=== PATIENT | female | born 1960 | race African-American/Black ===

== ENCOUNTER 2018-11-25 14:26 | Inpatient (IN) | payer BC ==
[2018-11-25] MEDS ORDERED: HEPARIN SODIUM,PORCINE 5,000 UNIT/ML 1 ML VIAL IV PRN (14:38)
[2018-11-25] MEDS ORDERED: HEPARIN SODIUM,PORCINE 10,000 UNIT/ML 1 ML VIAL IV ONE (14:38)
--- NOTE | 2018-11-25 14:41 | ED ---
General Adult HPI - General Chief complaint: Chest Pain Stated complaint: Chest pain Time Seen by Provider: 11/25/18 14:38 Source: patient Mode of arrival: wheelchair Limitations: no limitations - History of Present Illness Initial comments: Dictation was produced using [employer] dictation software. please excuse any grammatical, word or spelling errors. Chief Complaint: 58 yo female past medical history of hypertension, dys lipidemia, also arthritis presents with instruction from primary care physician come to the emergency department. History of Present Illness: This 58-year-old female with past medical history of dyslipidemia hypertension osteoarthritis. She presents today with chief complaint of chest pain, shortness of breath and palpitations 2 weeks. Patient states her symptoms began 2 weeks ago where she had pain in her left anterior neck. She states the pain radiates down to her left anterior chest. Denies any exacerbating or mitigating factors. Patient is full short of breath. She has a history of breast cancer. Denies any history of pulmonary embolus patient does complain of intermittent pain in the left lower extremity. Patient was evaluated at her PCPs office where she was found to have shingles elevated heart rate. The ROS documented in this emergency department record has been reviewed and confirmed by me. Those systems with pertinent positive or negative responses have been documented in the HPI. All other systems are other negative and/or noncontributory. PHYSICAL EXAM: General Impression: Alert and oriented x3, not in acute distress HEENT: Normocephalic atraumatic, extra-ocular movements intact, pupils equal and reactive to light bilaterally, mucous membranes moist. Cardiovascular: Tachycardic Chest: Lungs clear to auscultation bilaterally, no rhonchi, no wheeze, no rales Abdomen: Bowel sounds present, abdomen soft, non-tender, non-distended, no organomegaly Musculoskeletal: Pulses present and equal in all extremities, no peripheral edema, slight asymmetrical swelling of the left lower extremity greater than the right Motor: no focal deficits noted Neurological: CN II-XII grossly intact, no focal motor or sensory deficits noted Skin: Intact with no visualized rashes Psych: Normal affect and mood ED course: 58-year-old female presents with abnormal vital signs, chest pain and shortness of breath. Vital signs upon arrival shows heart rate 144, blood pre ssure 189/129, worse vital signs within acceptable limits. Patient's well- appearing at bedside. Primary care bedside ultrasound performed. There does not appear to be any pericardial effusion.Discussed patient case in detail with Dr. Lyle of vascular surgery on-call. He is aware that CT angios the chest was not time for arterial dissection, furthermore CT angios the neck was a suboptimal study with exam limitations. He has low clinical suspicion of aortic dissection with radiation to the carotid arteries. He recommends performing stat ultrasound carotids of the bilateral carotid artery. Patient reevaluated she states that she still has his pain however mild. Her heart rate is improved to 120s with intravenous fluids. She given another bolus. Return evaluation tape mild leukocytosis of 12.1 likely secondary to stress. Coag panel unremarkable. Blood gas shows a bicarb of 30 without any pH abnormalities. Metabolic panel shows potassium 3.3. Likely acidosis of 2.6, magnesium of 1.4. She is given parenteral electrolytes. Cardiac enzymes negative. Chest x-ray shows no ab normalities. Chest CT was not time for aortic abnormalities however there is no findings of acute pulmonary embolism. CT angios the neck was obtained resulting in a suboptimal study. There is significant flow limiting stenosis not clearly identified of the left carotid artery. Radiology recommends additional evaluation with ultrasound or magnetic resonance angiogram. Stat ultrasound carotids were obtained per recommendation by vascular surgery. Discussed patient case in detail with radiologist Dr. Sammie Byrne. He reviewed films and reports that there is no aortic dissection, PE or carotid dissection. He does report that there does appear to be some decreased flow in the carotid seen on CT angios the neck he does recommend ultrasound of the carotid to confirm CTA findings. At this point patient does not have any serious cardiopulmonary or vascular emergency. Patient given aspirin for chest pain. Patient appears comfortable at this time. Pending ultrasound carotid results. Patient be admitted for tachycardia, electrolyte abnormality and dehydration. Cardiology on consultation. EKG interpretation: Ventricular rate 139, sinus tachycardia, NV interval 150, QRS 80, QTc 559. No NV prolongation, positive prolonged QTC - Related Data Home Medications Medication Instructions Recorded Confirmed Amitriptyline HCl [Elavil] 25 mg PO HS 11/25/18 11/25/18 Hyoscyamine Sulfate [Levsin] 0.125 mg PO QID 11/25/18 11/25/18 Losartan/Hydrochlorothiazide 1 tab PO DAILY 11/25/18 11/25/18 [Losartan-Hctz 100-12.5 mg Tab] Multivitamins, Thera [Multivitamin 1 tab PO DAILY 11/25/18 11/25/18 (formulary)] Allergies Allergy/AdvReac Type Severity Reaction Status Date / Time No Known Allergies Allergy Verified 11/25/18 14:56 Review of Systems ROS Statement: Those systems with pertinent positive or pertinent negative responses have been documented in the HPI. ROS Other: All systems not noted in ROS Statement are negative. Past Medical History Past Medical History: Cancer, Hyperlipidemia, Hypertension, Osteoarthritis (OA) Additional Past Medical History / Comment(s): hx breast cancer, IBS, HERNIA, unexplained wt loss 21 pounds, diarrhea History of Any Multi-Drug Resistant Organisms: None Reported Past Surgical History: Breast Surgery, Cholecystectomy, Hysterectomy, Orthopedic Surgery, Tonsillectomy Additional Past Surgical History / Comment(s): left breast lumpectomy, zo knee arthroscopy Past Anesthesia/Blood Transfusion Reactions: Postoperative Nausea & Vomiting (PONV) Past Psychological History: No Psychological Hx Reported Smoking Status: Never smoker Past Alcohol Use History: None Reported Past Drug Use History: None Reported - Past Family History Sister(s) Family Medical History: Cancer Mother Family Medical History: AFIB, Cancer General Exam Limitations: no limitations Course Vital Signs 11/25/18 11/25/18 11/25/18 14:28 15:29 17:07 Temperature 98.4 F Pulse Rate 144 H 128 H Respiratory 26 H 18 18 Rate Blood Pressure 189/129 164/111 O2 Sat by Pulse 99 Oximetry Medical Decision Making - Lab Data Result diagrams: 11/25/18 15:00 11/25/18 15:00 Lab Results 11/25/18 11/25/18 11/25/18 Range/Units 15:00 15:00 15:00 WBC 12.1 H (3.8-10.6) k/uL RBC 5.13 (3.80-5.40) m/uL Hgb 14.1 (11.4-16.0) gm/dL Hct 41.8 (34.0-46.0) % MCV 81.3 (80.0-100.0) fL MCH 27.5 (25.0-35.0) pg MCHC 33.8 (31.0-37.0) g/dL RDW 14.9 (11.5-15.5) % Plt Count 418 (150-450) k/uL Neutrophils % 62 % Lymphocytes % 28 % Monocytes % 4 % Eosinophils % 3 % Basophils % 1 % Neutrophils # 7.5 (1.3-7.7) k/uL Lymphocytes # 3.3 (1.0-4.8) k/uL Monocytes # 0.5 (0-1.0) k/uL Eosinophils # 0.4 (0-0.7) k/uL Basophils # 0.1 (0-0.2) k/uL PT (9.0-12.0) sec INR (<1.2) VBG pH (7.31-7.41) VBG pCO2 (37-51) mmHg VBG HCO3 (24-28) mmol/L Sodium 143 (137-145) mmol/L Potassium 3.3 L (3.5-5.1) mmol/L Chloride 103 (98-107) mmol/L Carbon Dioxide 29 (22-30) mmol/L Anion Gap 11 mmol/L BUN 15 (7-17) mg/dL Creatinine 0.79 (0.52-1.04) mg/dL Est GFR (CKD-EPI)AfAm >90 (>60 ml/min/1.73 sqM) Est GFR (CKD-EPI)NonAf 84 (>60 ml/min/1.73 sqM) Glucose 149 H (74-99) mg/dL Plasma Lactic Acid Luis 2.6 H* (0.7-2.0) mmol/L Calcium 10.3 H (8.4-10.2) mg/dL Magnesium 1.4 L (1.6-2.3) mg/dL Total Bilirubin 0.5 (0.2-1.3) mg/dL AST 33 (14-36) U/L ALT 27 (9-52) U/L Alkaline Phosphatase 157 H (38-126) U/L Troponin I (0.000-0.034) ng/mL NT-Pro-B Natriuret Pep pg/mL Total Protein 7.8 (6.3-8.2) g/dL Albumin 4.7 (3.5-5.0) g/dL 11/25/18 11/25/18 11/25/18 Range/Units 15:00 15:00 15:00 WBC (3.8-10.6) k/uL RBC (3.80-5.40) m/uL Hgb (11.4-16.0) gm/dL Hct (34.0-46.0) % MCV (80.0-100.0) fL MCH (25.0-35.0) pg MCHC (31.0-37.0) g/dL RDW (11.5-15.5) % Plt Count (150-450) k/uL Neutrophils % % Lymphocytes % % Monocytes % % Eosinophils % % Basophils % % Neutrophils # (1.3-7.7) k/uL Lymphocytes # (1.0-4.8) k/uL Monocytes # (0-1.0) k/uL Eosinophils # (0-0.7) k/uL Basophils # (0-0.2) k/uL PT 9.9 (9.0-12.0) sec INR 0.9 (<1.2) VBG pH (7.31-7.41) VBG pCO2 (37-51) mmHg VBG HCO3 (24-28) mmol/L Sodium (137-145) mmol/L Potassium (3.5-5.1) mmol/L Chloride (98-107) mmol/L Carbon Dioxide (22-30) mmol/L Anion Gap mmol/L BUN (7-17) mg/dL Creatinine (0.52-1.04) mg/dL Est GFR (CKD-EPI)AfAm (>60 ml/min/1.73 sqM) Est GFR (CKD-EPI)NonAf (>60 ml/min/1.73 sqM) Glucose (74-99) mg/dL Plasma Lactic Acid Luis (0.7-2.0) mmol/L Calcium (8.4-10.2) mg/dL Magnesium (1.6-2.3) mg/dL Total Bilirubin (0.2-1.3) mg/dL AST (14-36) U/L ALT (9-52) U/L Alkaline Phosphatase (38-126) U/L Troponin I <0.012 (0.000-0.034) ng/mL NT-Pro-B Natriuret Pep 35 pg/mL Total Protein (6.3-8.2) g/dL Albumin (3.5-5.0) g/dL 05/23/19 Range/Units 16:32 WBC (3.8-10.6) k/uL RBC (3.80-5.40) m/uL Hgb (11.4-16.0) gm/dL Hct (34.0-46.0) % MCV (80.0-100.0) fL MCH (25.0-35.0) pg MCHC (31.0-37.0) g/dL RDW (11.5-15.5) % Plt Count (150-450) k/uL Neutrophils % % Lymphocytes % % Monocytes % % Eosinophils % % Basophils % % Neutrophils # (1.3-7.7) k/uL Lymphocytes # (1.0-4.8) k/uL Monocytes # (0-1.0) k/uL Eosinophils # (0-0.7) k/uL Basophils # (0-0.2) k/uL PT (9.0-12.0) sec INR (<1.2) VBG pH 7.41 (7.31-7.41) VBG pCO2 48 (37-51) mmHg VBG HCO3 30 H (24-28) mmol/L Sodium (137-145) mmol/L Potassium (3.5-5.1) mmol/L Chloride (98-107) mmol/L Carbon Dioxide (22-30) mmol/L Anion Gap mmol/L BUN (7-17) mg/dL Creatinine (0.52-1.04) mg/dL Est GFR (CKD-EPI)AfAm (>60 ml/min/1.73 sqM) Est GFR (CKD-EPI)NonAf (>60 ml/min/1.73 sqM) Glucose (74-99) mg/dL Plasma Lactic Acid Luis (0.7-2.0) mmol/L Calcium (8.4-10.2) mg/dL Magnesium (1.6-2.3) mg/dL Total Bilirubin (0.2-1.3) mg/dL AST (14-36) U/L ALT (9-52) U/L Alkaline Phosphatase (38-126) U/L Troponin I (0.000-0.034) ng/mL NT-Pro-B Natriuret Pep pg/mL Total Protein (6.3-8.2) g/dL Albumin (3.5-5.0) g/dL Disposition Clinical Impression: Chest pain, Hypomagnesemia Disposition: ADMITTED IP TO THIS HOSP Condition: Fair Referrals: Dallin York MD [Primary Care Provider] - 1-2 days Decision Time: 17:16
[2018-11-25] MEDS ORDERED: HEPARIN SOD,PORK IN 0.45% NACL 25,000 UNIT in 0.45% NACL 1 250ML.BAG IV SCH (14:45)
[2018-11-25] MEDS ORDERED: SODIUM CHLORIDE 0.9% 1,000 ML IV STA ×2 (14:53→17:18)
[2018-11-25 15:24] LABS: ALT 27 U/L (9-52); AST 33 U/L (14-36); Albumin 4.7 g/dL (3.5-5.0); Alkaline Phosphatase 157 U/L (38-126); Anion Gap 11 mmol/L; Blood Urea Nitrogen 15 mg/dL (7-17); Calcium 10.3 mg/dL (8.4-10.2); Carbon Dioxide 29 mmol/L (22-30); Chloride 103 mmol/L (98-107); Glucose 149 mg/dL (74-99); Magnesium 1.4 mg/dL (1.6-2.3); Potassium 3.3 mmol/L (3.5-5.1); Sodium 143 mmol/L (137-145); Total Bilirubin 0.5 mg/dL (0.2-1.3); Total Protein 7.8 g/dL (6.3-8.2)
[2018-11-25] MEDS ORDERED: POTASSIUM CHLORIDE 20 MEQ in WATER FOR INJECTION 1 100ML.BAG IVPB STA (15:32)
[2018-11-25 15:37] LABS: Basophils # (A) 0.1 k/uL (0-0.2); Basophils % (A) 1 %; Eosinophils # (A) 0.4 k/uL (0-0.7); Eosinophils % (A) 3 %; HCT 41.8 % (34.0-46.0); HGB 14.1 gm/dL (11.4-16.0); Lymphocytes # (A) 3.3 k/uL (1.0-4.8); Lymphocytes % (A) 28 %; MCH 27.5 pg (25.0-35.0); MCHC 33.8 g/dL (31.0-37.0); MCV 81.3 fL (80.0-100.0); Mean Platelet Volume 6.9; Monocytes # (A) 0.5 k/uL (0-1.0); Monocytes % (A) 4 %; Neutrophils # (A) 7.5 k/uL (1.3-7.7); Neutrophils % (A) 62 %; Platelet Count 418 k/uL (150-450); RBC 5.13 m/uL (3.80-5.40); RDW 14.9 % (11.5-15.5); WBC 12.1 k/uL (3.8-10.6)
--- NOTE | 2018-11-25 15:42 | XR ---
EXAMINATION TYPE: XR chest 1V portable DATE OF EXAM: 11/25/2018 COMPARISON: NONE HISTORY: Chest pain TECHNIQUE: Single frontal view of the chest is obtained. FINDINGS: There is no focal air space opacity, pleural effusion, or pneumothorax seen. The cardiac silhouette size is within normal limits. Hyperdense linear fragments overlie the left lower lung. Th e osseous structures are intact. Moderate multilevel degenerative changes of the thoracic spine. IMPRESSION: Linear radiopaque densities project over the lower lung. Correlate with surgical history of the left chest or breast. Lateral view could better delineate anatomic location.
--- NOTE | 2018-11-25 15:58 | CT ---
CT CHEST FOR PULMONARY EMBOLISM. EXAMINATION TYPE: CT angio chest DATE OF EXAM: 11/25/2018 INDICATION: Left sided neck pain radiating into chest. Increased heart rate. CT DLP: 704.4 mGycm, Automated exposure control for dose reduction was used. CONTRAST: Patient injected with 50 mL of Isovue 370. COMPARISON: None TECHNIQUE: CT of the chest is performed on a spiral scan at 2 mm thick sections. Study is performed with intravenous contrast timed for evaluation for pulmonary embolism. This will limit additional po rtions of the evaluation. 3-D MIP images reconstructed by the technologist are reviewed on the compu ter in the coronal and sagittal planes. FINDINGS: No persistent filling defects are evident to suggest an acute pulmonary embolism. No mediastinal or hilar adenopathy enlarged by CT criteria is evident. The ascending aorta diameter at the level of the main pulmonary artery is 3.6 cm. The main pulmonary artery diameter at the bifur cation is 2.6 cm. Lung windows are clear. Limited CT section through the upper abdomen are unremarkable. IMPRESSIONS: 1. No acute pulmonary embolism.
[2018-11-25 15:59] LABS: INR 0.9 (<1.2); Prothrombin Time 9.9 sec (9.0-12.0)
--- NOTE | 2018-11-25 16:27 | CT ---
EXAMINATION TYPE: CT angio neck DATE OF EXAM: 11/25/2018 HISTORY: Left sided neck pain radiating into chest. Increased heart rate. COMPARISON: None CT DLP: 792.4 mGycm. Automated Exposure Control for Dose Reduction was Utilized. TECHNIQUE: CTA scan of the neck is performed with IV Contrast, patient injected with 50 mL of Isovue 370, axial images are obtained, coronal and sagittal reformatted images are reviewed. Attempts to ac quire Three-D reconstruction images were unsuccessful. Exam quality limited reconstructions and this exam is limited to the axial plane and 2-D reconstructed images obtained. FINDINGS: Carotid/Vascular Structures: There is a three-vessel arch. Common carotid arteries bifurcate into int ernal and external carotid arteries. Contrast appears greater in the veins and within the adjacent ar teries. Carotid arteries appear to be patent to the level of the skull base. Vertebral arteries are c odominant. [place]: Vertebral basilar system is visualized is normal. The proximal posterior cerebral a rteries are unremarkable. A1 and M1 segments visualized appear normal. The anterior communicating art juan antonio is likely patent. Overall, [place] is limited due to incomplete opacification of the art erial system. Other: Lung apices within the [id number] are clear. Dental amalgam scatter artifacts at the level of the mandible. Thyroid is slightly heterogenous. Scattered small lymph nodes are within the neck. IMPRESSION: 1. Examination is very limited. 2. Significant flow-limiting stenosis not clearly identified. There is a suspicion of narrowing on th e right best visualized on the 2-D coronal plane.. Consider additional evaluation with ultrasound or MRA.
[2018-11-25 16:47] LABS: VBG PH 7.41 (7.31-7.41)
[2018-11-25] MEDS ORDERED: SODIUM CHLORIDE 0.9% 500 ML IV STA (16:57)
[2018-11-25] MEDS: MAGNESIUM SULFATE-D5W PMX 1 GM in DEXTROSE/WATER 1 100ML.BAG IVPB SCH ×2 (17:15→19:29)
[2018-11-25] MEDS ORDERED: ASPIRIN 81 MG PO STA ×2 (17:15→17:16)
[2018-11-25] MEDS ORDERED: NITROGLYCERIN SL TABS 0.4 MG TAB SUBLINGUAL PRN (17:16)
--- NOTE | 2018-11-25 18:17 | US ---
EXAMINATION TYPE: US carotid duplex BILAT DATE OF EXAM: 11/25/2018 COMPARISON: NONE CLINICAL HISTORY: Pain. Pain in left neck going to chest. EXAM MEASUREMENTS: RIGHT: Peak Systolic Velocity (PSV) cm/sec ----- Right CCA: 53.7 ----- Right ICA: 97.3 ----- Right ECA: 49.3 ICA/CCA ratio: 1.8 RIGHT: End Diastole cm/sec ----- Right CCA: 21.7 ----- Right ICA: 44.9 ----- Right ECA: 20.2 LEFT: Peak Systolic Velocity (PSV) cm/sec ----- Left CCA: 82.6 ----- Left ICA: 70.7 ----- Left ECA: 81.4 ICA/CCA ratio: 0.9 LEFT: End Diastole cm/sec ----- Left CCA: 31.3 ----- Left ICA: 27.4 ----- Left ECA: 12.8 VERTEBRALS (direction of flow): Right Vertebral: Antegrade Left Vertebral: Antegrade Rhythm: Arrhythmia IMPRESSION: 1) No significant stenosis. 2) Bilateral vessels are deeply portioned.
[2018-11-25] MEDS ORDERED: LABETALOL SYRINGE 5 MG/ML IVP STA (18:45)
[2018-11-25 20:06] VITALS: BMI 47.8
[2018-11-25] MEDS: ACETAMINOPHEN TAB 325 MG TAB PO PRN (23:30)
[2018-11-26 03:56] LABS: Anion Gap 7 mmol/L; Blood Urea Nitrogen 11 mg/dL (7-17); Calcium 9.2 mg/dL (8.4-10.2); Carbon Dioxide 28 mmol/L (22-30); Chloride 103 mmol/L (98-107); Cholesterol 144 mg/dL (<200); Glucose 120 mg/dL (74-99); HDL Cholesterol 53 mg/dL (40-60); LDL Cholesterol,Calculated 67 mg/dL (0-99); Magnesium 1.8 mg/dL (1.6-2.3); Sodium 138 mmol/L (137-145); Triglycerides 118 mg/dL (<150)
[2018-11-26 08:09] LABS: Basophils # (A) 0.1 k/uL (0-0.2); Basophils % (A) 1 %; Eosinophils # (A) 0.3 k/uL (0-0.7); Eosinophils % (A) 3 %; HCT 36.7 % (34.0-46.0); HGB 12.8 gm/dL (11.4-16.0); Lymphocytes # (A) 3.7 k/uL (1.0-4.8); Lymphocytes % (A) 33 %; MCH 28.6 pg (25.0-35.0); MCV 81.6 fL (80.0-100.0); Monocytes # (A) 0.5 k/uL (0-1.0); Monocytes % (A) 4 %; Neutrophils # (A) 6.4 k/uL (1.3-7.7); Neutrophils % (A) 57 %; Platelet Count 406 k/uL (150-450); RDW 14.3 % (11.5-15.5); WBC 11.1 k/uL (3.8-10.6)
[2018-11-26] MEDS ORDERED: ASPIRIN 325 MG TAB PO SCH (09:00)
[2018-11-26] MEDS ORDERED: LOSARTAN 50 MG TAB PO SCH (09:15)
[2018-11-26] MEDS ORDERED: HYDROCHLOROTHIAZIDE 12.5 MG CAP PO SCH (09:15)
[2018-11-26] MEDS ORDERED: METOPROLOL TARTRATE 25 MG TAB PO SCH (09:15)
--- NOTE | 2018-11-26 09:15 | P.CRDCN ---
History of Present Illness Consult date: 11/26/18 Requesting physician: Natan E Ian Reason for Consult (text): Chest pain and tachycardia Consult reason: chest pain Chief complaint: Chest pain and jaw discomfort History of present illness: This is a pleasant 58-year-old female with history of hypertension, hyperlipidemia, obesity, nondiabetic, nonsmoker, who follows with Dr. York as her primary care doctor. According to the patient, she developed some discomfort in her left jaw area that radiated down her neck. Ultimately she noticed that it radiated down into her chest and if she would move a certain way she would notice a chest pain. It was a sharp pain, that would last only a few seconds, and was very positional. She went to see her primary care doctor, it was noted in the office at her heart rate was elevated, she was admitted to the hospital for further evaluation and treatment. Chest x-ray on arrival here showed linear radiopaque densities which project over the lower lung. CTA of the chest was performed which did not reveal any acute pulmonary embolism. CTA of the neck was performed, it showed suspicion of a narrowing on the right, MRA recommended. Bilateral carotid Doppler study was performed which did not reveal any significant. EKG on admission showed a sinus tachycardia with nonspecific ST-T wave changes, this morning's EKG shows a normal sinus rhythm with no acute changes. Blood pressure on arrival here 189/129, heart rate 140, 99% on room air. Blood pressure this morning 138/70 with a heart rate in the 80s, 96% on room air. White blood cell count 11.1, hemoglobin 12.8, platelet count 46. Sodium 138, potassium 3.0, it was 3.3 on admission, BUN 11 and creatinine 0.6. Plasma lactic acid level on admission was 2.2, magnesium was 1.4, troponins negative 3. Anastacio all is 144, LDL 67, HDL 53 and triglycerides 118. At the time of my examination this morning, patient is free of any chest pain, no discomfort in the jaw, no palpitations. Past Medical History Past Medical History: Cancer, Hyperlipidemia, Hypertension, Osteoarthritis (OA) Additional Past Medical History / Comment(s): hx breast cancer left side masectomy, IBS, HERNIA, unexplained wt loss 21 pounds, diarrhea History of Any Multi-Drug Resistant Organisms: None Reported Past Surgical History: Breast Surgery, Cholecystectomy, Hysterectomy, Orthopedic Surgery, Tonsillectomy Additional Past Surgical History / Comment(s): left breast lumpectomy 2009, zo knee arthroscopy, Past Anesthesia/Blood Transfusion Reactions: Postoperative Nausea & Vomiting (PONV) Past Psychological History: No Psychological Hx Reported Smoking Status: Never smoker Past Alcohol Use History: None Reported Past Drug Use History: None Reported - Past Family History Father Family Medical History: No Reported History Sister(s) Family Medical History: Cancer Additional Family Medical History / Comment(s): breast cancer Mother Family Medical History: AFIB, Cancer Additional Family Medical History / Comment(s): breast cancer Medications and Allergies Home Medications Medication Instructions Recorded Confirmed Type Amitriptyline HCl [Elavil] 25 mg PO HS 11/25/18 11/25/18 History Hyoscyamine Sulfate [Levsin] 0.125 mg PO QID 11/25/18 11/25/18 History Multivitamins, Thera [Multivitamin 1 tab PO DAILY 11/25/18 11/25/18 History (formulary)] Amoxic-Pot Clav 875-125Mg 1 tab PO Q12HR #14 tablet 11/26/18 Rx [Augmentin 875-125] Losartan [Cozaar] 100 mg PO DAILY #30 tab 11/26/18 Rx Allergies Allergy/AdvReac Type Severity Reaction Status Date / Time No Known Allergies Allergy Verified 11/25/18 14:56 Physical Exam Vitals: Vital Signs Temp Pulse Pulse Resp BP BP Pulse Ox 11/26/18 03:14 79 18 11/26/18 03:12 98.2 F 79 18 137/77 96 11/25/18 23:38 78 18 11/25/18 23:37 98.0 F 78 18 169/87 97 11/25/18 20:00 80 18 11/25/18 19:54 97.9 F 80 18 177/98 94 L 11/25/18 19:35 84 150/100 11/25/18 19:21 118 H 132/103 11/25/18 18:40 135 H 172/113 11/25/18 17:07 128 H 18 164/111 11/25/18 15:29 18 11/25/18 14:28 98.4 F 144 H 26 H 189/129 99 Intake and Output 11/25/18 11/26/18 11/26/18 22:59 06:59 14:59 Intake Total 600 360 Balance 600 360 Intake: Oral 600 360 Other: Voiding Method Toilet Toilet # Voids 1 Weight 122.6 kg PHYSICAL EXAMINATION: GENERAL: 58-year-old female in no acute distress at the time of my examination HEENT: Head is atraumatic, normocephalic. Pupils equal, round. Sclera anicteric. Conjunctiva are clear. Mucous membranes of the mouth are moist. Neck is supple. There is some mild swelling noted to the left jaw area. Positive swollen lymph nodes. There is no elevated jugular venous pressure. No carotid bruit is heard. HEART EXAMINATION: Heart S1 and S2 regular, tachycardic CHEST EXAMINATION: Lungs are clear to auscultation and precussion. No chest wall tenderness is noted on palpation or with deep breathing. ABDOMEN: Soft, obese, nontender. Bowel sounds are heard. No organomegaly noted. EXTREMITIES: 2+ peripheral pulses with no evidence of peripheral edema and no calf tenderness noted. NEUROLOGIC patient is awake, alert and oriented 3 . . Results 11/26/18 03:13 11/26/18 03:13 Cardiac Enzymes 11/25/18 11/25/18 11/25/18 Range/Units 15:00 15:00 19:32 AST 33 (14-36) U/L Troponin I <0.012 <0.012 (0.000-0.034) ng/mL 11/26/18 Range/Units 03:13 AST (14-36) U/L Troponin I <0.012 (0.000-0.034) ng/mL Coagulation 11/25/18 Range/Units 15:00 PT 9.9 (9.0-12.0) sec Lipids 11/26/18 Range/Units 03:13 Triglycerides 118 (<150) mg/dL Cholesterol 144 (<200) mg/dL HDL Cholesterol 53 (40-60) mg/dL CBC 11/25/18 11/26/18 Range/Units 15:00 03:13 WBC 12.1 H 11.1 H (3.8-10.6) k/uL RBC 5.13 4.50 (3.80-5.40) m/uL Hgb 14.1 12.8 (11.4-16.0) gm/dL Hct 41.8 36.7 (34.0-46.0) % Plt Count 418 406 (150-450) k/uL Comprehensive Metabolic Panel 11/25/18 11/26/18 Range/Units 15:00 03:13 Sodium 143 138 (137-145) mmol/L Potassium 3.3 L 3.0 L (3.5-5.1) mmol/L Chloride 103 103 (98-107) mmol/L Carbon Dioxide 29 28 (22-30) mmol/L BUN 15 11 (7-17) mg/dL Creatinine 0.79 0.61 (0.52-1.04) mg/dL Glucose 149 H 120 H (74-99) mg/dL Calcium 10.3 H 9.2 (8.4-10.2) mg/dL AST 33 (14-36) U/L ALT 27 (9-52) U/L Alkaline Phosphatase 157 H (38-126) U/L Total Protein 7.8 (6.3-8.2) g/dL Albumin 4.7 (3.5-5.0) g/dL Current Medications Generic Name Dose Route Start Last Admin Trade Name Freq PRN Reason Stop Dose Admin Acetaminophen 650 mg 11/25/18 23:22 11/25/18 23:30 Tylenol Tab PO 650 mg Q6HR PRN Administration Fever and/ or Pain Aspirin 325 mg 11/26/18 09:00 11/26/18 08:39 Aspirin PO 325 mg DAILY ADRIANA Administration Nitroglycerin 0.4 mg 11/25/18 17:16 Nitrostat SUBLINGUAL Q5M PRN Chest Pain Intake and Output 11/25/18 11/26/18 11/26/18 22:59 06:59 14:59 Intake Total 600 360 Balance 600 360 Intake: Oral 600 360 Other: Voiding Method Toilet Toilet # Voids 1 Weight 122.6 kg 11/26/18 03:13 11/26/18 03:13 EKG Interpretations (text) Initial EKG shows a sinus tachycardia with nonspecific ST-T wave changes, m orning EKG shows normal sinus rhythm with no acute changes Assessment and Plan Plan: Assessment and plan #1 symptoms of left jaw and neck discomfort with radiation to the chest, atypical for acute coronary syndrome. Troponins negative 3. Initial EKG shows a sinus tachycardia, subsequent EKG shows normal sinus rhythm. CT of the chest negative for pulmonary embolism. #2 hypokalemia #3 hypomagnesemia #4 hypertensive urgency #5 hyperlipidemia #6 elevated plasma lactic acid level, patient states she was told in her primary care is a doctor's office to have a UTI Plan We will check a free T4 and a TSH level. Obtain echocardiogram with Doppler study. Patient's chest pain is very atypical for acute coronary syndrome. Recommend possible stress testing today. Replace magnesium and potassium. Resume losartan, add a small dose of beta lex. Decrease aspirin to 81 mg daily. Obtain UA. Further recommendations to follow. DNP note has been reviewed, I agree with a documented findings and plan of care. Patient was seen and examined.
[2018-11-26] MEDS: ACETAMINOPHEN TAB 325 MG TAB PO PRN (09:33)
[2018-11-26 09:39] VITALS: RESP 20
[2018-11-26] MEDS ORDERED: POTASSIUM CHLORIDE ER 20 MEQ TAB.ER PO STA (10:37)
[2018-11-26] MEDS ORDERED: MAGNESIUM SULFATE-D5W PMX 1 GM in DEXTROSE/WATER 1 100ML.BAG IVPB ONE (10:37)
--- NOTE | 2018-11-26 10:41 | ECHOF ---
Referral Reason:tachycardia MEASUREMENTS -------- HEIGHT: 160.0 cm WEIGHT: 122.5 kg BP: IVSd: 1.4 cm (0.6 - 1.1) LVIDd: 4.8 cm (3.9 - 5.3) LVPWd: 1.2 cm (0.6 - 1.1) IVSs: 2.3 cm LVIDs: 1.7 cm LVPWs: 2.4 cm LAESV Index (A-L): 23.43 ml/m Ao Diam: 3.0 cm (2.0 - 3.7) AV Cusp: 1.9 cm (1.5 - 2.6) LA Diam: 3.0 cm (2.7 - 3.8) MV EXCURSION: 15.618 mm (> 18.000) MV EF SLOPE: 123 mm/s (70 - 150) EPSS: 0.5 cm MV E Chava: 0.96 m/s MV DecT: 196 ms MV A Chava: 0.85 m/s MV E/A Ratio: 1.14 RAP: 5.00 mmHg RVSP: 9.20 mmHg FINDINGS -------- Sinus rhythm. This was a technically good study. The left ventricular size is normal. There is mild concentric left ventricular hypertrophy. Overa ll left ventricular systolic function is normal with, an EF between 55 - 60 %. The right ventricle is normal in size. Normal LA size by volume 22+/-6 ml/m2. The right atrial size is normal. Interatrial and interventricular septum intact. The aortic valve is trileaflet and appears structurally normal. The mitral valve leaflets are mildly thickened. Mild mitral regurgitation is present. Mild tricuspid regurgitation present. There is no evidence of pulmonary hypertension. The right v entricular systolic pressure, as measured by Doppler, is 9.20mmHg. Pulmonic valve appears structurally normal. The aortic root size is normal. Normal inferior vena cava with normal inspiratory collapse consistent with estimated right atrial pre ssure of 5 mmHg. There is no pericardial effusion. CONCLUSIONS -------- 1. Sinus rhythm. 2. This was a technically good study. 3. The left ventricular size is normal. 4. There is mild concentric left ventricular hypertrophy. 5. Overall left ventricular systolic function is normal with, an EF between 55 - 60 %. 6. The right ventricle is normal in size. 7. Normal LA size by volume 22+/-6 ml/m2. 8. The right atrial size is normal. 9. Interatrial and interventricular septum intact. 10. The aortic valve is trileaflet and appears structurally normal. 11. The mitral valve leaflets are mildly thickened. 12. Mild mitral regurgitation is present. 13. Mild tricuspid regurgitation present. 14. There is no evidence of pulmonary hypertension. 15. The right ventricular systolic pressure, as measured by Doppler, is 9.20mmHg. 16. Pulmonic valve appears structurally normal. 17. The aortic root size is normal. 18. Normal inferior vena cava with normal inspiratory collapse consistent with estimated right atrial pressure of 5 mmHg. 19. There is no pericardial effusion. DATA CENTER OPERATOR: Karmen Macias RDCS
[2018-11-26] MEDS ORDERED: SODIUM CHLORIDE 0.9% 1,000 ML IV SCH (10:45)
--- NOTE | 2018-11-26 10:48 | P.DS ---
Providers Date of admission: 11/25/18 17:16 Attending physician: Natan Sosa MD Consults: 11/25/18 17:16 Consult Physician Routine Consulting Provider: Geo Lyle Consult Reason/Comments: carotid stenosis Do you want consulting provider notified?: Yes Consult Physician Urgent Consulting Provider: Noreen Gregg Consult Reason/Comments: tachycardia Do you want consulting provider notified?: Yes Primary care physician: Dallin York Hospital Course: As mentioned in HPI Patient Condition at Discharge: Fair Plan - Discharge Summary Discharge Rx Participant: No New Discharge Prescriptions: New Amoxic-Pot Clav 875-125Mg [Augmentin 875-125] 1 tab PO Q12HR #14 tablet Losartan [Cozaar] 100 mg PO DAILY #30 tab Continue Amitriptyline HCl [Elavil] 25 mg PO HS Hyoscyamine Sulfate [Levsin] 0.125 mg PO QID Multivitamins, Thera [Multivitamin (formulary)] 1 tab PO DAILY Discontinued Losartan/Hydrochlorothiazide [Losartan-Hctz 100-12.5 mg Tab] 1 tab PO DAILY Discharge Medication List Amitriptyline HCl [Elavil] 25 mg PO HS 11/25/18 [History] Hyoscyamine Sulfate [Levsin] 0.125 mg PO QID 11/25/18 [History] Multivitamins, Thera [Multivitamin (formulary)] 1 tab PO DAILY 11/25/18 [History] Amoxic-Pot Clav 875-125Mg [Augmentin 875-125] 1 tab PO Q12HR #14 tablet 11/26/18 [Rx] Losartan [Cozaar] 100 mg PO DAILY #30 tab 11/26/18 [Rx] Follow up Appointment(s)/Referral(s): Dallin York MD [Primary Care Provider] - 3 Days Vicente Bennett DO [Doctor of Osteopathic Medicine] - 3 Days
--- NOTE | 2018-11-26 10:48 | P.HPIM ---
History of Present Illness Patient is a pleasant 58-year-old female was sent in for chest pain, rule out pulmonary embolism acute coronary syndromes. Patient was sent in from PCPs office Dr. York's office she presented there with the left jaw pain neck pain patient appears to have parotitis. Patient pain was 5/10 in severity now about 3/10 in severity was radiating to the neck area from the left jaw area as well as left shoulder down to the chest area. Patient was evaluated by cardiology and this appears to be noncardiac chest pain patient had a CT angios the chest which did not show any pulmonary embolism. Carotid Doppler no significant the occlusion, CTA of the neck was also within normal limits. Patient does not have any strokelike symptoms at this time. Patient blood pressure was elevated on admission) it's okay. Patient is on losartan and hydrocodone thiazide. Holding off on HIDA, thiazide because of her lactic acidosis. Patient was discharged on losartan. Patient given IV fluids and patient came in his has a lactic acid was 2.59 normalized after IV fluids. Patient is also hypokalemic and hyponatremic secondary to hydrochlorothiazide. I believe patient blood sugar should be okay even without hydrocodone size at this can be resumed as an outpatient if needed. Patient will be started on Augmentin and patient will be referred to ENT specialist I discussed with him on phone. Review of Systems REVIEW OF SYSTEMS: CONSTITUTIONAL: No fever, no malaise, no fatigue. HEENT: No recent visual problems or hearing problems. Denied any sore throat. CARDIOVASCULAR: No orthopnea, PND, no palpitations, no syncope. PULMONARY: No shortness of breath, no cough, no hemoptysis. GASTROINTESTINAL: No diarrhea, no nausea, no vomiting, no abdominal pain. NEUROLOGICAL: No headaches, no weakness, no numbness. HEMATOLOGICAL: Denies any bleeding or petechiae. GENITOURINARY: Denies any burning micturition, frequency, or urgency. MUSCULOSKELETAL/RHEUMATOLOGICAL: Denies any joint pain, swelling, or any muscle pain. ENDOCRINE: Denies any polyuria or polydipsia. The rest of the 14-point review of systems is negative. Past Medical History Past Medical History: Cancer, Hyperlipidemia, Hypertension, Osteoarthritis (OA) Additional Past Medical History / Comment(s): hx breast cancer left side masectomy, IBS, HERNIA, unexplained wt loss 21 pounds, diarrhea History of Any Multi-Drug Resistant Organisms: None Reported Past Surgical History: Breast Surgery, Cholecystectomy, Hysterectomy, Orthopedic Surgery, Tonsillectomy Additional Past Surgical History / Comment(s): left breast lumpectomy 2008, zo knee arthroscopy, Past Anesthesia/Blood Transfusion Reactions: Postoperative Nausea & Vomiting (PONV) Past Psychological History: No Psychological Hx Reported Smoking Status: Never smoker Past Alcohol Use History: None Reported Past Drug Use History: None Reported - Past Family History Father Family Medical History: No Reported History Sister(s) Family Medical History: Cancer Additional Family Medical History / Comment(s): breast cancer Mother Family Medical History: AFIB, Cancer Additional Family Medical History / Comment(s): breast cancer Medications and Allergies Home Medications Medication Instructions Recorded Confirmed Type Amitriptyline HCl [Elavil] 25 mg PO HS 11/25/18 11/25/18 History Hyoscyamine Sulfate [Levsin] 0.125 mg PO QID 11/25/18 11/25/18 History Losartan/Hydrochlorothiazide 1 tab PO DAILY 11/25/18 11/25/18 History [Losartan-Hctz 100-12.5 mg Tab] Multivitamins, Thera [Multivitamin 1 tab PO DAILY 11/25/18 11/25/18 History (formulary)] Allergies Allergy/AdvReac Type Severity Reaction Status Date / Time No Known Allergies Allergy Verified 11/25/18 14:56 Physical Exam Vitals: Vital Signs Temp Pulse Pulse Resp BP BP Pulse Ox 11/26/18 08:00 98.1 F 78 20 121/64 95 11/26/18 03:14 79 18 11/26/18 03:12 98.2 F 79 18 137/77 96 11/25/18 23:38 78 18 11/25/18 23:37 98.0 F 78 18 169/87 97 11/25/18 20:00 80 18 11/25/18 19:54 97.9 F 80 18 177/98 94 L 11/25/18 19:35 84 150/100 11/25/18 19:21 118 H 132/103 11/25/18 18:40 135 H 172/113 11/25/18 17:07 128 H 18 164/111 11/25/18 15:29 18 11/25/18 14:28 98.4 F 144 H 26 H 189/129 99 Intake and Output 11/25/18 11/26/18 11/26/18 22:59 06:59 14:59 Intake Total 600 360 Balance 600 360 Intake: Oral 600 360 Other: Voiding Method Toilet Toilet # Voids 1 Weight 122.6 kg PHYSICAL EXAMINATION: GENERAL: The patient is alert and oriented x3, not in any acute distress. Well developed, well nourished. HEENT: Pupils are round and equally reacting to light. EOMI. No scleral icterus. No conjunctival pallor. Normocephalic, atraumatic. No pharyngeal erythema. No thyromegaly. Redness and swelling of the left jaw CARDIOVASCULAR: S1 and S2 present. No murmurs, rubs, or gallops. PULMONARY: Chest is clear to auscultation, no wheezing or crackles. ABDOMEN: Soft, nontender, nondistended, normoactive bowel sounds. No palpable organomegaly. MUSCULOSKELETAL: No joint swelling or deformity. EXTREMITIES: No cyanosis, clubbing, or pedal edema. NEUROLOGICAL: Gross neurological examination did not reveal any focal deficits. SKIN: No rashes. Results CBC & Chem 7: 11/26/18 03:13 11/26/18 03:13 Labs: Abnormal Lab Results - Last 24 Hours (Table) 11/25/18 11/25/18 11/25/18 Range/Units 15:00 15:00 15:00 WBC 12.1 H (3.8-10.6) k/uL VBG HCO3 (24-28) mmol/L Potassium 3.3 L (3.5-5.1) mmol/L Glucose 149 H (74-99) mg/dL Plasma Lactic Acid Luis 2.6 H* (0.7-2.0) mmol/L Calcium 10.3 H (8.4-10.2) mg/dL Magnesium 1.4 L (1.6-2.3) mg/dL Alkaline Phosphatase 157 H (38-126) U/L 11/25/18 11/25/18 11/26/18 Range/Units 16:32 19:32 03:13 WBC (3.8-10.6) k/uL VBG HCO3 30 H (24-28) mmol/L Potassium 3.0 L (3.5-5.1) mmol/L Glucose 120 H (74-99) mg/dL Plasma Lactic Acid Luis 2.2 H* (0.7-2.0) mmol/L Calcium (8.4-10.2) mg/dL Magnesium (1.6-2.3) mg/dL Alkaline Phosphatase (38-126) U/L 11/26/18 Range/Units 03:13 WBC 11.1 H (3.8-10.6) k/uL VBG HCO3 (24-28) mmol/L Potassium (3.5-5.1) mmol/L Glucose (74-99) mg/dL Plasma Lactic Acid Luis (0.7-2.0) mmol/L Calcium (8.4-10.2) mg/dL Magnesium (1.6-2.3) mg/dL Alkaline Phosphatase (38-126) U/L Thrombosis Risk Factor Assmnt - Choose All That Apply Any of the Below Risk Factors Present?: Yes Each Factor Represents 1 point: Age 41-60 years, Obesity (BMI >25) Other Risk Factors: No Other congenital or acquired thrombophilia - If yes, enter type in comment: No Thrombosis Risk Factor Assessment Total Risk Factor Score: 2 Thrombosis Risk Factor Assessment Level: Low Risk Assessment and Plan Plan: -Left jaw pain secondary to parotitis patient will be discharged on Augmentin for a week with follow-up with ENT as an outpatient. -Chest pain rule out pulmonary embolism, ruled out acute coronary syndromes unstable angina patient has a atypical chest pain can get a stress test as an outpatient. Patient also had a carotid Doppler as mentioned above which did not show any significant abnormality. -Hypertension: Losartan will be continued her current president will be discontinued -Lactic acidosis secondary to parotitis along with the eating on hydrochlorothiazide. -Hypokalemia and hypomagnesemia secondary to hydrocodone for his age easily please -Obesity: Counseling was provided -Hyperlipidemia Patient will be discharged today with the above-mentioned plan.
[2018-11-26 11:36] VITALS: BP 142/75; PULSE 71; TEMP 97.7
[2018-11-26] MEDS ORDERED: CLINDAMYCIN 300 MG in DEXTROSE 5% IN WATER 50 ML IVPB SCH ×2 (12:00)
[2018-11-27] MEDS ORDERED: ASPIRIN 81 MG PO SCH (09:00)
== END 2018-11-26 13:50 | disposition home or self-care (01) | DRG 155 ==
LOC: EC 14:26 → 3SCARD 17:16
PROVIDERS: ADMIT Internal Medicine; ATTEND Internal Medicine
DX: K11.20 Sialoadenitis, unspecified (principal); E87.2 Acidosis; Z68.42 Body mass index [BMI] 45.0-49.9, adult; N39.0 Urinary tract infection, site not specified; B02.9 Zoster without complications; E83.42 Hypomagnesemia; E66.9 Obesity, unspecified; E87.6 Hypokalemia; I16.0 Hypertensive urgency; I10 Essential (primary) hypertension; E78.5 Hyperlipidemia, unspecified; M19.90 Unspecified osteoarthritis, unspecified site; T50.2X5A Adverse effect of carbonic-anhydrase inhibitors, benzothiadiazides and other diuretics, initial encounter; K58.0 Irritable bowel syndrome with diarrhea; M54.2 Cervicalgia; Z71.3 Dietary counseling and surveillance; Z79.899 Other long term (current) drug therapy; Z90.49 Acquired absence of other specified parts of digestive tract; Z85.3 Personal history of malignant neoplasm of breast; Z90.710 Acquired absence of both cervix and uterus; Z98.890 Other specified postprocedural states; Z82.49 Family history of ischemic heart disease and other diseases of the circulatory system; Z80.3 Family history of malignant neoplasm of breast
CPT/HCPCS: 36415; 70498; 71045; 71275; 80048; 80053; 80061; 82803; 83605; 83735; 83880; 84443; 84484; 85025; 85610; 93005; 93306; 93880; 96361; 96365; 96366; 96368; 96375; 99285

== ENCOUNTER → 2018-12-14 | Outpatient (CLI) | payer BC ==
--- NOTE | 2018-12-15 07:27 | US ---
EXAMINATION TYPE: US thyroid st tissue head/neck DATE OF EXAM: 12/14/2018 COMPARISON: NONE CLINICAL HISTORY: E04.1 THYROID NODULE,L PAROTID MASS/SWELLING. Thyroid nodule, left parotid mass/swe lling. GLAND SIZE: Right Lobe: 4.9 x 2.0 x 2.3 cm Overall Parenchyma: Heterogeneous Left Lobe: 5.4 x 2.1 x 2.1 cm Overall Parenchyma: Heterogeneous Isthmus Thickness: 0.3 cm NODULES RIGHT: # of nodules measured on right: 2 1. 1.0 X 0.8 x 0.6 cm hypoechoic solid nodule at the upper pole with well-defined margins. This no dule is wider than tall and shows intranodular vascularity. Prior size: no prior 2. 1.1 X 1.0 x 1.1 cm hypoechoic solid nodule at the mid pole with well-defined margins. This nodul e is taller than wide and shows intranodular vascularity. On image 20/82 the margin of this nodule ap pears to be exophytic from the posterior margin of the thyroid gland. Prior size: no prior LEFT: # of nodules measured on left: 2 1. 0.7 X 0.5 x 0.5 cm hypoechoic solid nodule at the mid pole with poorly defined margins . This n odule is as wide as it is tall and shows intranodular vascularity. Prior size: no prior 2. 1.0 X 1.0 x 1.0 cm hypoechoic heterogeneous nodule at the mid pole with poorly defined margins. This nodule is as tall as it is wide and shows intranodular vascularity. Prior size: no prior ISTHMUS: # of nodules measured in the isthmus: 0 Scanned left parotid gland area that was of concern and right parotid gland area for comparison. Alexa stinct borders of parotid glands. Glands appear heterogeneous with indistinct, scattered hypoechoic a reas seen. Several hypoechoic areas with echogenic centers seen bilaterally. Largest measured on left : 1.2 x 1.4 x 0.5 cm. IMPRESSION: 1. Well-defined right thyroid nodule within the mid gland that appears to be exophytic. Correlate wit h serum laboratory values to exclude parathyroid adenoma. If there is further concern nuclear medicin e parathyroid scan could be performed. Alternatively this may simply represent an exophytic thyroid n odule 2. Multiple bilateral thyroid nodules measuring up to 1.1 cm. Surveillance would be recommended for t hese nodules.
== END | disposition home or self-care (01) ==
LOC: RADUSWWP 17:00
PROVIDERS: ATTEND Otolaryngology
DX: E04.2 Nontoxic multinodular goiter (principal)
CPT/HCPCS: 76536

== ENCOUNTER 2019-01-10 09:00 | Day surgery (SDC) | payer BC ==
[2019-01-10 09:20] VITALS: TEMP 98.2
[2019-01-10 10:11] LABS: Ionized Calcium 5.1 mg/dL (4.5-5.3)
[2019-01-10 10:21] LABS: Calcium 9.6 mg/dL (8.4-10.2)
[2019-01-10 10:57] VITALS: BP 155/81; PULSE 81; RESP 16
--- NOTE | 2019-01-10 13:00 | US ---
ULTRASOUND GUIDED FNA THYROID BIOPSY: CLINICAL HISTORY: Request for a mid pole right and left thyroid nodule FINDINGS: The procedure was explained to the patient. The risks, complications, benefits and alternatives were discussed and any questions were answered. Informed consent was obtained. Patient was placed supin e on the ultrasound table and prepped and draped in the usual sterile fashion. Utilizing a 25 gauge needle, five passes were made into the 2 requested nodules. Patient was stable throughout the procedure. Pathology is pending. All elements of maximal barrier technique were utilized. IMPRESSION: 1. Successful ultrasound guided FNA thyroid biopsy. 2. There is no evidence of a parotid mass by ultrasound. Therefore a sonographic biopsy could not be performed.
== END 2019-01-10 10:40 | disposition home or self-care (01) ==
LOC: RADPROMAIN 09:00
PROVIDERS: ATTEND Otolaryngology
DX: E04.1 Nontoxic single thyroid nodule (principal)
CPT/HCPCS: 10005; 10006; 82306; 82310; 82330; 84443; 84481; 86376; 88173; 88305

== ENCOUNTER → 2020-01-18 | Outpatient (CLI) | payer BC ==
--- NOTE | 2020-01-18 11:37 | MM ---
Reason for exam: additional evaluation requested from prior study. Last mammogram was performed 3 years and 7 months ago. History: Patient is postmenopausal and has history of breast cancer at age 48. Family history of breast cancer in mother, breast cancer in maternal sister, and breast cancer in maternal aunt. Malignant core biopsy of the left breast, February 09, 2009. Lumpectomy of the left breast. Radiation therapy of the left breast. Took tamoxifen for 1 year 1 month beginning at age 48. Physical Findings: Nurse did not find any significant physical abnormalities on exam. MG Diagnostic Mammo w CAD OBI Bilateral CC and MLO view(s) were taken. Prior study comparison: July 01, 2016, bilateral MG diagnostic mammo w CAD OBI. March 21, 2014, bilateral MG screening mammo w CAD. There are scattered fibroglandular densities. Stable benign calcifications left breast. Stable post operative changes left breast. No significant new findings when compared with previous films. These results were verbally communicated with the patient and result sheet given to the patient on 01/18/20. ASSESSMENT: Benign, BI-RAD 2 RECOMMENDATION: Follow-up diagnostic mammogram of both breasts in 1 year.
--- NOTE | 2020-01-18 12:47 | BD ---
EXAMINATION TYPE: Axial Bone Density DATE OF EXAM: 01/18/2020 COMPARISON: 07.01.2016 CLINICAL HISTORY: 59 YR OLD FEMALE....ICD-10 CODE: C50.919 MALIGNANT NEOPLASM, Z78.0 MENOPAUSAL Height: 61 Weight: 276 FRAX RISK QUESTIONS: NOTHING ADDITIONAL TO NOTE HERE RISK FACTORS HISTORY OF: Active: YES Postmenopausal woman: YES, AT 51 YRS OLD Lost more than 2 inches in height since high school: Poor Health: HX OF BREAST CANCER Hyperparathyroidism: NO Adrenal Insufficiency: NO MEDICATIONS: Additional Medications: BP MEDS, HX OF RADIATION, AMATRIPTILINE, MULTIVITAMIN , NSAIDS, EXCEDRIN, ME TFORMIN, REFLUX MEDS IN PAST, CHOLESTEROL MEDS, VIT D, , Additional History: HX OF LT BREAST CANCER, SEVERE ARTHRITIS IN BOTH KNEES, IBS, DIABETIC, REFLUX, EXAM MEASUREMENTS: Bone mineral densitometry was performed using the [employer] System. Bone mineral density as measured about the Lumbar spine is: ----- L1-L4(G/cm2): 1.589 T Score Values are as follows: ----- L1: 3.4 ----- L2: 4.1 ----- L3: 3.3 ----- L4: 2.8 ----- L1-L4: 3.4 Bone mineral density has: Increased 14.7% since study of: 07.01.2016 Bone mineral density about the R hip (g/cm2): 1.138 Bone mineral density about the L hip (g/cm2): 1.071 T Score values are as follows: -----R Neck: -0.3 -----L Neck: -0.5 -----R Total: 1.0 -----L Total: 0.5 Bone mineral density has: Decreased -0.5% since study of: 07.01.2016 FRAX%s: THERE IS A 2.8% CHANCE FOR A MAJOR OSTEOPOROTIC FX AND A 0.1% FOR HIP.....PROBABILITY FOR F X IN 10 YRS TIME IMPRESSION: No evidence for osteoporosis or osteopenia. NOTE: T-SCORE=SD OF THE YOUNG ADULT MEAN.
== END | disposition home or self-care (01) ==
LOC: RADMAMWWP 10:24
PROVIDERS: ATTEND Family Medicine
DX: C50.919 Malignant neoplasm of unspecified site of unspecified female breast (principal); Z78.0 Asymptomatic menopausal state
CPT/HCPCS: 77066; 77080

== ENCOUNTER → 2020-02-02 | Outpatient (CLI) | payer BC ==
[2020-02-02 16:07] VITALS: BP 183/117; PULSE 94; RESP 20; TEMP 98.7
--- NOTE | 2020-02-02 16:44 | P.GSHP ---
History of Present Illness H&P Date: 02/02/20 Chief Complaint: Surveillance secondary to left breast cancer Krysta is a 59 year old female seen for Dr. Dallin York for surveillance related to a prior left breast cancer. The patient underwent a lumpectomy and radiation therapy. She also was on tamoxifen for 5 years. This was diagnosed in 2008. She had not had a recent mammogram several years. [place] [id number] which was benign BIRADS 2 and repeat bilateral mammogram in 1 year was recommended. She does not feel any lumps masses or nodules in either breast at this time. She is not complaining of any nipple discharge or skin changes. She is concerned because the right breast is larger than the left breast. It is very difficult to wear cloths. The patient has colonoscopies regularly she will be due in 2 years and has not had any colon cancer or polyps. The patient has not had genetic testing, however her sister did have genetic testing and was told she was high risk. The patient is uncertain as to what Giuseppe she carries. Famliy History: mother: bilateral breast cancer 4 maternal aunts: breast cancer, 2 also had pancreatic cancer, 2 also had colon cancer maternal aunt: Leukemia Maternal aunt: 2 with colon cancer and no breast cancer sister: breast cancer; bilateral sister: colon cancer 2 maternal cousins: breast cancer maternal cousin: lymphoma Hormonal History: menarche: 10 , breast fed: yes, age at first 17 menopause: hysterectomy 2011, left ovaries BCP: 4 years hormones: none Surgical history: Cholecystectomy Left breast lumpectomy and sentinel node biopsy Hysterectomy Medical history: HTN boarderline diabetic high cholesterol Social HIstory: smoke: none alcohol: none drugs: none - Constitutional Constitutional: Denies chills, Denies fever - EENT Comment: legally blind in the left eye since Eyes: denies blurred vision, denies pain Ears: deny: decreased hearing, tinnitus Ears, nose, mouth and throat: Denies headache, Denies sore throat - Breasts Breasts: bilateral: as per HPI - Cardiovascular Comment: Tachycardia Cardiovascular: Reports high blood pressure - Respiratory Respiratory: Denies cough, Denies 7 - Gastrointestinal Comment: IBS Gastrointestinal: Denies abdominal pain, Denies diarrhea, Denies nausea, Denies vomiting - Genitourinary (Female) Genitourinary: Denies dysuria, Denies hematuria - Menstruation Menstruation: Reports post hysterectomy - Musculoskeletal Comment: Arthritis in her knees Musculoskeletal: Denies myalgias - Integumentary Integumentary: Denies pruritus, Denies rash - Neurological Neurological: Denies numbness, Denies weakness - Psychiatric Psychiatric: Denies anxiety, Denies depression - Endocrine Endocrine: Reports fatigue, Reports weight change - Hematologic/Lymphatic Comment: none - Allergic/Immunologic Allergic/Immunologic: Reports seasonal allergies Past Medical History Past Medical History: Cancer, Hyperlipidemia, Hypertension, Osteoarthritis (OA) Additional Past Medical History / Comment(s): hx 10 years ago breast cancer left side lumpectomy and radiation then tamoxifen for 5 years, IBS, HERNIA, explained wt loss 21 pounds, diarrhea, swelling on left side of face and neck since November, patient was told she has mumps (parotitis) History of Any Multi-Drug Resistant Organisms: None Reported Past Surgical History: Breast Surgery, Cholecystectomy, Hysterectomy, Orthopedic Surgery, Tonsillectomy Additional Past Surgical History / Comment(s): left breast lumpectomy 2008, zo knee arthroscopy, Past Anesthesia/Blood Transfusion Reactions: Postoperative Nausea & Vomiting (PONV) Past Psychological History: No Psychological Hx Reported Smoking Status: Never smoker Past Alcohol Use History: None Reported Past Drug Use History: None Reported - Past Family History Father Family Medical History: No Reported History Sister(s) Family Medical History: Cancer Additional Family Medical History / Comment(s): breast cancer Mother Family Medical History: AFIB, Cancer Additional Family Medical History / Comment(s): breast cancer Medications and Allergies Home Medications Medication Instructions Recorded Confirmed Type Amitriptyline HCl [Elavil] 25 mg PO HS 11/25/18 02/02/20 History Multivitamins, Thera [Multivitamin 1 tab PO DAILY 11/25/18 02/02/20 History (formulary)] Metoprolol Tartrate [Lopressor] 25 mg PO BID #60 tab 11/26/18 02/02/20 Rx Atorvastatin [Lipitor] 40 mg PO DAILY 01/07/19 02/02/20 History Losartan/Hydrochlorothiazide 100 mg PO DAILY 01/07/19 02/02/20 History [Losartan-Hctz 100-12.5 mg Tab] Acetaminophen [Tylenol Arthritis] 650 mg PO BID PRN 01/10/19 02/02/20 History Potassium Chloride [K-Tab ER] 10 meq PO DAILY 01/10/19 02/02/20 History Allergies Allergy/AdvReac Type Severity Reaction Status Date / Time No Known Allergies Allergy Verified 02/02/20 16:03 Surgical - Exam Vital Signs Temp Pulse Resp BP Pulse Ox 98.7 F 94 20 183/117 96 02/02/20 16:05 02/02/20 16:05 02/02/20 16:05 02/02/20 16:05 02/02/20 16:05 BMI 49.6 - General obese - ENT normal nares, no hearing loss - Neck trachea midline - Respiratory normal respiratory effort, clear to auscultation - Cardiovascular Rhythm: regular Heart Sounds: normal: S1, S2 - Abdomen Abdomen: soft, non tender, bowel sounds, no guarding, no rigid, no rebound - Integumentary normal turgor - Neurologic no disoriented, no combative - Musculoskeletal normal gait - Psychiatric oriented to time, oriented to person, oriented to place, speech is normal, memory intact breast exam: BRA: 38C inspection: Right breast 1-1/2 times larger than the left breast; right breast grade 3 ptosis, left breast grade 2 ptosis Palpation: Right breast: Multi-positional exam no dominant masses or nodules of concern, fibrocystic changes Right axilla: No adenopathy of concern Left breast: Multiple positional exam no dominant masses or nodules of concern, fibrocystic changes Left axilla: No adenopathy of concern Results Bilateral mammogram results reviewed Assessment and Plan Assessment: Impression: 1. Prior left breast cancer 2. Asymmetry of the breast 3. Anxiety secondary to asymmetry of the breast difficulty finding close to fit 4. Recent bilateral mammogram no lesions of concern in the breast 5. Family history of breast cancer Plan: 1. Genetic testing/ medical oncology patient is BRCA1 positive will consider bilateral mastectomy with reconstruction 2. Symmetry procedure of the breast 3. Repeat bilateral mammogram in 1 year with physician exam at that time Cc: Dr. Dallin York encounter 45 minutes, > 50% of time in planning and counselling
== END | disposition home or self-care (01) ==
LOC: WWCWWP 15:43
PROVIDERS: ATTEND Surgery
DX: Z53.9 Procedure and treatment not carried out, unspecified reason (principal)

== ENCOUNTER → 2020-03-30 | Outpatient (CLI) | payer BC ==
[2020-03-30 14:16] VITALS: BP 118/89; PULSE 89; RESP 18; TEMP 98.8
--- NOTE | 2020-03-30 14:53 | P.PN ---
Subjective Progress Note Date: 03/30/20 Principal diagnosis: BRCA 2 test positive Krysta is a 59 year old female seen for Dr. Dallin York for surveillance related to a prior left breast cancer. The patient underwent a lumpectomy and radiation therapy. She also was on tamoxifen for 5 years. This was diagnosed in 2008. She had not had a recent mammogram several years. [place] [id number] which was benign BIRADS 2 and repeat bilateral mammogram in 1 year was recommended. She does not feel any lumps masses or nodules in either breast at this time. She is not complaining of any nipple discharge or skin changes. She is concerned because the right breast is larger than the left breast. It is very difficult to wear cloths. The patient has colonoscopies regularly she will be due in 2 years and has not had any colon cancer or polyps. The patient has not had genetic testing, however her sister did have genetic testing and was told she was high risk. The patient had genetic testing done and is BRACA 2 +. She states her sister is also BRCA2 +. Ther are 15 people in her family that are BRAC2 +. Family History: mother: bilateral breast cancer 4 maternal aunts: breast cancer, 2 also had pancreatic cancer, 2 also had colon cancer maternal aunt: Leukemia Maternal aunt: 2 with colon cancer and no breast cancer sister: breast cancer; bilateral sister: colon cancer 2 maternal cousins: breast cancer maternal cousin: lymphoma Hormonal History: menarche: 10 , breast fed: yes, age at first 17 menopause: hysterectomy 2011, left ovaries BCP: 4 years hormones: none Surgical history: Cholecystectomy Left breast lumpectomy and sentinel node biopsy Hysterectomy Medical history: HTN boarderline diabetic high cholesterol Social HIstory: smoke: none alcohol: none drugs: none - Constitutional Constitutional: Denies chills, Denies fever - EENT Comment: legally blind in the left eye since Eyes: denies blurred vision, denies pain Ears: deny: decreased hearing, tinnitus Ears, nose, mouth and throat: Denies headache, Denies sore throat - Breasts Breasts: bilateral: as per HPI - Cardiovascular Comment: Tachycardia Cardiovascular: Reports high blood pressure - Respiratory Respiratory: Denies cough, - Gastrointestinal Comment: IBS Gastrointestinal: Denies abdominal pain, Denies diarrhea, Denies nausea, Denies vomiting - Genitourinary (Female) Genitourinary: Denies dysuria, Denies hematuria - Menstruation Menstruation: Reports post hysterectomy - Musculoskeletal Comment: Arthritis in her knees Musculoskeletal: Denies myalgias - Integumentary Integumentary: Denies pruritus, Denies rash - Neurological Neurological: Denies numbness, Denies weakness - Psychiatric Psychiatric: Denies anxiety, Denies depression - Endocrine Endocrine: Reports fatigue, Reports weight change - Hematologic/Lymphatic Comment: none - Allergic/Immunologic Allergic/Immunologic: Reports seasonal allergies Objective - Vital Signs Vital signs: Vital Signs Temp 98.8 F 03/30/20 14:14 Pulse 89 03/30/20 14:14 Resp 18 03/30/20 14:14 BP 118/89 03/30/20 14:14 Pulse Ox 95 03/30/20 14:14 Intake & Output 03/29/20 03/30/20 03/30/20 18:59 06:59 18:59 Weight 124.738 kg - Exam BMI 48.7 - Constitutional General appearance: Present: obese - EENT Eyes: Present: EOMI ENT: Present: hearing grossly normal - Neck Neck: Present: normal ROM - Respiratory Respiratory: bilateral: CTA - Cardiovascular Rhythm: regular Heart sounds: normal: S1, S2 - Gastrointestinal General gastrointestinal: Present: normal bowel sounds, soft - Integumentary Integumentary: Present: normal turgor - Musculoskeletal Musculoskeletal: Present: gait normal - Psychiatric Psychiatric: Present: A&O x's 3, appropriate affect, intact judgment & insight - Additional findings Additional findings: Breast exam: [place] [id number] BRA 40C Inspection left breast smaller than right breast Palpation: Right breast: Multiple positional exam no dominant masses or nodules of concern, fibrocystic changes Right axilla: No adenopathy of concern {: Multiple positional exam no dominant masses or nodules of concern, fibrocystic changes Left axilla, in no excellent no adenopathy of concern Assessment and Plan Assessment: Impression: 1. Prior left breast cancer no evidence of recurrence 2. Asymmetry of the breast 3. Anxiety secondary to asymmetry of the breast, difficulty finding closed. 4. Recent bilateral mammogram no lesions of concern in the breast 5. Family history of breast cancer 6. BRCA2 positive Plan: 1. At this time patient is going to speak with medical oncology regarding increased breast cancer risk secondary to BRCA2 gene 2. She is going to hold off on any operative procedure at this time 3. Repeat bilateral mammogram in 1 year with physician exam at that time 4. Prosthesis for the left breast to help equalize the size difference 5. appointment with plastic surgery I have had a discussion with the patient regarding the BRCA2 cancer risk. We have talked about bilateral mastectomy. At this time she wishes to have close surveillance. He is going to hold off on a symmetry procedure for the right breast at this time. CC: Dr. Dallin York encounter 25 minutes > 50% of time in planning and counselling
== END | disposition home or self-care (01) ==
LOC: WWCWWP 14:03
PROVIDERS: ATTEND Surgery
DX: Z53.9 Procedure and treatment not carried out, unspecified reason (principal)

== ENCOUNTER → 2020-05-16 | Outpatient (CLI) | payer OTHER ==
--- NOTE | 2020-05-16 16:12 | XR ---
EXAMINATION TYPE: XR chest 2V DATE OF EXAM: 05/16/2020 COMPARISON: Chest x-ray 11/25/2018 HISTORY: Chest pain TECHNIQUE: Frontal and lateral views of the chest are obtained. FINDINGS: There is no focal air space opacity, pleural effusion, or pneumothorax seen. The cardiac silhouette size is within normal limits. The osseous structures are intact. Surgical clips present over the left chest. IMPRESSION: No acute cardiopulmonary process.
== END | disposition home or self-care (01) ==
LOC: RADXRMAIN 15:08
PROVIDERS: ATTEND Family Medicine
DX: R07.89 Other chest pain (principal)
CPT/HCPCS: 71046

== ENCOUNTER → 2021-01-21 | Outpatient (CLI) | payer BC ==
--- NOTE | 2021-01-21 13:52 | MM ---
Reason for exam: additional evaluation requested from prior study. Last mammogram was performed 1 year ago. History: Patient is postmenopausal and has history of breast cancer at age 48. Family history of breast cancer in mother, breast cancer in maternal sister, and breast cancer in maternal aunt. Malignant core biopsy of the left breast, February 09, 2009. Lumpectomy of the left breast. Radiation therapy of the left breast. Took tamoxifen for 1 year 1 month beginning at age 48. Physical Findings: Nurse did not find any significant physical abnormalities on exam. MG Diagnostic Mammo w CAD OBI Bilateral CC and MLO view(s) were taken. Prior study comparison: January 18, 2020, bilateral MG diagnostic mammo w CAD OBI. July 01, 2016, bilateral MG diagnostic mammo w CAD OBI. There are scattered fibroglandular densities. Left post operative. Right fat necrosis upper outer middle depth. These results were verbally communicated with the patient and result sheet given to the patient on 01/21/21. ASSESSMENT: Benign, BI-RAD 2 RECOMMENDATION: Routine screening mammogram of both breasts in 1 year.
== END | disposition home or self-care (01) ==
LOC: RADMAMWWP 12:54
PROVIDERS: ATTEND Surgery
DX: N64.1 Fat necrosis of breast (principal); Z78.0 Asymptomatic menopausal state; Z85.3 Personal history of malignant neoplasm of breast; Z80.3 Family history of malignant neoplasm of breast; Z79.899 Other long term (current) drug therapy
CPT/HCPCS: 77066

== ENCOUNTER → 2022-02-26 | Outpatient (CLI) | payer BC ==
--- NOTE | 2022-02-26 14:25 | BD ---
EXAMINATION TYPE: Axial Bone Density DATE OF EXAM: 02/26/2022 COMPARISON: 07/01/2016; 01/18/2020 CLINICAL HISTORY: 61 years year old Female. ICD-10 CODE: Z78.0 ASYM MENOPAUSAL STATE Height: 61.5 IN Weight: 268 LBS RISK FACTORS HISTORY OF: Active: LIMITED Diet low in dairy products/other sources of calcium: YES Postmenopausal woman: PARTIAL HYST AGE 51 MEDICATIONS: Additional Medications: VIT D, LOSARTAN, METOPROLOL, METFORMIN, AMLODIPINE, CRESTOR, ALLERGY MEDS, TU RMERIC, TYLENOL ARTHRITIS,POTASSIUM, MAGNESIUM, HYDRO CHLORIZIDE, Additional History: BREAST CANCER WITH RADIATION EXAM MEASUREMENTS: Bone mineral densitometry was performed using the [employer] System. Bone mineral density as measured about the Lumbar spine is: ----- L1-L4(G/cm2): 1.558 T Score Values are as follows: ----- L1: 2.8 ----- L2: 3.2 ----- L3: 3.2 ----- L4: 3.3 ----- L1-L4: 3.1 Bone mineral density has: Increased 13.6% since study of: 07/01/2016; STUDY FROM 01/18/2020 UNAVAILAB LE Bone mineral density about the R hip (g/cm2): 0.993 Bone mineral density about the L hip (g/cm2): 0.927 T Score values are as follows: -----R Neck: -0.3 -----L Neck: -0.8 -----R Total: 0.5 -----L Total: -0.3 Bone mineral density has: Decreased -7.9% since study of: 07/01/2016; STUDY FROM 01/18/2020 IS UNAVAI LABLE FRAX%s: The graph provided illustrates a 3.2 chance for a major osteoporotic fx and a 0.1 chance for the hips probability for fx in 10 years time. IMPRESSION: Normal (Values between +1 and -1 indicate normal bone mass). Consider repeating this study in 5 year s or sooner if there is some new clinical indication. NOTE: T-SCORE=SD OF THE YOUNG ADULT MEAN.
--- NOTE | 2022-02-27 09:42 | MM ---
Reason for Exam: Screening (asymptomatic). Last mammogram was performed 1 year(s) and 1 month(s) ago. Patient History: Menarche at age 10. First Full-Term at age 16. Hysterectomy at age 51. Postmenopausal. Patient has history of breast feeding. Breast cancer, left, age 48. Tamoxifen, starting at age 48 for 1 year, 1 month. 02/09/2009, Malignant Core Biopsy on the left side. Lumpectomy on the Left side. Radiation Therapy, left. Maternal aunt had breast cancer. Sister had breast cancer. Mother had breast cancer. Prior Study Comparison: 05/31/2013 Bilateral Diagnostic Mammogram, [facility]. 03/21/2014 Bilateral Screening Mammogram, [facility]. 07/01/2016 Bilateral Diagnostic Mammogram, [facility]. 01/18/2020 Bilateral Diagnostic Mammogram, [facility]. 01/21/2021 Bilateral Diagnostic Mammogram, [facility]. Tissue Density: There are scattered fibroglandular densities. Findings: Analyzed By CAD. There is diminished size with surgical clips along with dystrophic calcifications in the left breast and distortion all redemonstrated. Benign-appearing right axillary lymph nodes are redemonstrated. Surgical clips in the left axilla are partially imaged similar to prior. There is no suspicious new group of microcalcifications or new suspicious mass in either breast. Overall Assessment: Benign, BI-RAD 2 Management: Screening Mammogram of both breasts in 1 year. A clinical breast exam by your physician is recommended on an annual basis and results should be correlated with mammographic findings. Electronically signed and approved by: Mayank Linder M.D.
== END | disposition home or self-care (01) ==
LOC: RADBDWWP 13:30
PROVIDERS: ATTEND Family Medicine
DX: Z12.31 Encounter for screening mammogram for malignant neoplasm of breast (principal); Z78.0 Asymptomatic menopausal state; Z80.3 Family history of malignant neoplasm of breast; Z85.3 Personal history of malignant neoplasm of breast
CPT/HCPCS: 77063; 77067; 77080

== ENCOUNTER → 2023-07-10 | Outpatient (CLI) | payer BC ==
--- NOTE | 2023-07-10 14:33 | MM ---
Reason for Exam: Screening (asymptomatic). Last mammogram was performed 1 year(s) and 5 month(s) ago. Patient History: Menarche at age 10. First Full-Term at age 16. Hysterectomy at age 51. Postmenopausal. Patient has history of breast feeding. Breast cancer, left, age 48. Tamoxifen, starting at age 48 for 1 year, 1 month. 02/09/2009, Malignant Core Biopsy on the left side. Lumpectomy on the Left side. Radiation Therapy, left. Maternal aunt had breast cancer. Sister had breast cancer. Mother had breast cancer. Prior Study Comparison: 01/18/2020 Bilateral Diagnostic Mammogram, [facility]. 01/21/2021 Bilateral Diagnostic Mammogram, [facility]. 02/26/2022 Bilateral MG 3D screening mammo w/cad, [facility]. Tissue Density: The breast tissue is almost entirely fat. Findings: Analyzed By CAD. Left breast surgical clips and calcifications. There is no suspicious group of microcalcifications or new suspicious mass. Overall Assessment: Benign, BI-RAD 2 Management: Screening Mammogram of both breasts in [address] [facility] will attempt to contact patient to return for supplemental views and ultrasound if indicated. Patient should continue monthly self-breast exams. A clinical breast exam by your physician is recommended on an annual basis. This exam should not preclude additional follow-up of suspicious palpable abnormalities. Note on Jackelyn scores and lifetime risk: 1. A Jackelyn score greater than 3% is considered moderate risk. If this is the case, consider specialist referral to assess eligibility for a risk reducing agent. 2. If overall lifetime risk for the development of breast cancer is 20% or higher, the patient may qualify for future screening with alternating mammogram and breast MRI. Electronically signed and approved by: Gonzalo Ram DO
== END | disposition home or self-care (01) ==
LOC: RADMAMWWP 14:10
PROVIDERS: ATTEND Family Medicine
DX: Z12.31 Encounter for screening mammogram for malignant neoplasm of breast (principal); Z78.0 Asymptomatic menopausal state; Z80.3 Family history of malignant neoplasm of breast
CPT/HCPCS: 77063; 77067